=== PATIENT | male | born 1960 | race Hispanic/Latino ===

== ENCOUNTER 2019-02-02 05:58 | Outpatient (CLI) | payer BC | END 2019-02-02 05:59 | disposition home or self-care (01) | LOC: CARDIO 05:58 ==

== ENCOUNTER 2019-02-02 10:06 | Day surgery (SDC) | payer BC ==
[2019-02-02] MEDS ORDERED: Lidocaine PF 2% (5 ml) Inj (For Cardiac Arrhy) ONE (10:26)
[2019-02-02] MEDS ORDERED: Iodixanol 320 MG/ML 200 ML BOTTLE IV ONE (10:27)
[2019-02-02] MEDS ORDERED: Iodixanol 320 MG/ML 100 ML BOTTLE IV ONE (10:27)
[2019-02-02] MEDS ORDERED: Iohexol 350mgl/ml 50 ML ONE (10:27)
[2019-02-02] MEDS ORDERED: Phenylephrine 10 mg/ml Inj ONE (10:30)
[2019-02-02] MEDS ORDERED: Nitroglycerin 50mg in D5W 0 MG/0 ML BOTTLE IV ONE (10:30)
[2019-02-02 10:37] VITALS: BMI 25.8
[2019-02-02 11:09] LABS: INR 0.99; PROTHROMBIN TIME 11.2 SECONDS (9.4-12.5)
[2019-02-02] MEDS ORDERED: Midazolam 2 MG/2 ML VIAL ONE ×2 (11:11→11:15)
[2019-02-02] MEDS ORDERED: Digoxin 500 mcg/2ml (0.5 mg/2ml) Inj ONE (11:27)
[2019-02-02] MEDS ORDERED: Sodium Chloride 0.9% 1,000 ML IV SCH (12:15)
[2019-02-02 12:32] VITALS: PULSE 129
--- NOTE | 2019-02-02 20:00 | CARDCATH ---
PROCEDURE DATE: 02/02/2019 HISTORY: The patient is a 58-year-old male, who presents with several weeks of progressive exertional shortness of breath. The patient is free of cardiac history. He does suffer from hypertension. He denies smoking. No diabetes mellitus. No family history for CAD. 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 REVIEW OF SYSTEMS: Dominated by exertional shortness of breath. PHYSICAL EXAMINATION: VITAL SIGNS: Blood pressure 127/90, heart rate is in the 50s. Normal sinus rhythm. NECK: Negative JVD. The patient underwent a stress test, in which his baseline EKG showed new ST-T changes. The patient became markedly short of breath at the end of stage II. Stat echocardiogram was performed, which revealed normal LV function with dilated left atrium. Because of these ongoing symptoms and high probability for CAD, he was taken to the crime lab analyst. PROCEDURE: Left heart catheterization with coronary arteriography and left ventriculogram with IVUS. The right femoral artery was cannulated with 6-Burkinan sheath. There were no complications. I performed moderate sedation, which included the presence of an independent trained observer that assisted in monitoring the patient's level of consciousness and physiologic status. After administration of Versed and fentanyl, my intra service time was 30 minutes. The findings on catheterization revealed a right dominant circulation. The RCA revealed diffuse atherosclerosis without critical lesions. The left main artery revealed an eccentric 70% stenoses at the ostial left main. The LAD revealed diffuse atherosclerosis without critical lesions. Diagonal vessels revealed diffuse atherosclerosis. The circumflex and obtuse marginal branch revealed diffuse atherosclerosis. Supra-aortic valvular injection revealed no aortic insufficiency. Left ventriculogram was performed in the KOVACS projection. In KOVACS projection, the left ventricle is mildly dilated but with normal LV systolic function with an EF of 60%. The patient was started on intravenous Angiomax on the fluoroscopic guide, the guider was placed in the ostium of the left main artery. IVUS was performed of the ostial left main. A 50% stenosis was found on IVUS. The left main artery revealed diffuse atherosclerosis throughout its course. Angio-Seal was used to close the femoral artery site. The patient tolerated the procedure well. In summary, the procedure revealed borderline critical left main stenosis varying from 50-70% with an eccentric lesion. The rest of his coronary tree revealed diffuse atherosclerosis without critical lesions. The LV function and systolic function was within normal limits. Given these findings, we will refer the patient to [place] where they can evaluate whether the ostial left main stenosis can and should be treated with percutaneous stenting as opposed to coronary bypass surgery. ADDENDUM: The patient prior to the procedure went into atrial fibrillation. He was given digoxin as well as Cardizem in the crime lab analyst. After the procedure, the patient converted to normal sinus rhythm. When he arrived in the telemetry floor, the patient went back into atrial fibrillation with a rate of 143. The patient was started on Eliquis and sotalol. Given these findings, if the patient remains stable in the morning, we will send him home on sotalol and Eliquis. He has an appointment to see Dr. Moreno in [place] on Wednesday. Silvio Duncan MD
--- NOTE | 2019-02-02 20:49 | HP ---
HISTORY OF PRESENT ILLNESS: The patient is a 58-year-old man with a past medical history of hypertension who presented for electively scheduled stress test for evaluation of angina. Due to concerning EKG changes he was taken to the cardiac catheterization lab where he was found to have diffuse coronary disease. During the procedure he developed atrial fibrillation but was medically converted to normal sinus rhythm. Shortly thereafter he redeveloped atrial fibrillation and was subsequently admitted to the telemetry fitch for continued postcatheterization care and management of new onset Afib. PAST MEDICAL HISTORY: As per HPI, also GERD. PAST SURGICAL HISTORY: Bilateral knee arthroscopy and C-spine surgery. ALLERGIES: NKDA. MEDICATIONS: Lisinopril 10 mg p.o. daily and Nexium 40 mg p.o. daily. FAMILY HISTORY: Noncontributory. SOCIAL HISTORY: The patient denies any history of toxic habits. REVIEW OF SYSTEMS: A 12-point review of systems is negative except as per HPI. PHYSICAL EXAMINATION: VITAL SIGNS: Temperature 98, pulse 55, blood pressure 140/61, respiratory rate 18, and oxygen saturation 99% on room air. GENERAL: No apparent distress. HEENT: PERRL. EOMI. No scleral icterus. No conjunctival pallor. NECK: No JVD. No bruits. LUNGS: Clear to auscultation. CARDIOVASCULAR: Tachycardic, irregularly irregular. Normal S1 and S2. No murmurs. ABDOMEN: Normoactive bowel sounds, soft, nontender and nondistended. EXTREMITIES: No edema. Cardiac catheterization site appears intact with no evidence of hematoma or femoral bruit. NEUROLOGIC: Awake, alert, and oriented x 3. No focal motor deficits. LABORATORY DATA: No new labs. ASSESSMENT: The patient is a 58-year-old man with a past medical history of hypertension who presented for electively scheduled stress testing for evaluation of angina and was was subsequently taken to the cardiac catheterization lab and whose hospital course was complicated by development of new onset atrial fibrillation. PLAN: 1. CAD. Input from Dr. Duncan noted and cardiac cath demonstrated diffuse coronary disease. Arrangements will be made for followup at [place] for continued care. Continue with post-cardiac catheterization care as per Dr. Duncan. 2. AFib, new onset. Continue Sotalol 80 mg p.o. b.i.d. and Eliquis 5 mg p.o. b.i.d. 3. Hypertension. We will continue to monitor hemodynamics and adjust antihypertensives as needed. 4. GERD. Resume Protonix 40 mg p.o. daily. 5. Prophylaxis. GI prophylaxis not indicated as the patient remains on Protonix. DVT prophylaxis not indicated as the patient remains on Eliquis. CODE STATUS: Full code. Mark Bazan MD MTDD
--- NOTE | 2019-02-02 22:24 | CARD ---
APPROVED REPORT Date of service: 02/02/2019 EKG Measurement Heart [id number] <Conclusion> Atrial fibrillation with rapid ventricular response Nonspecific ST and T wave abnormality Abnormal ECG
[2019-02-03 05:51] VITALS: RESP 18; TEMP 98.6; O2SAT 99
[2019-02-03] MEDS ORDERED: Pantoprazole 40 mg EC Tab PO SCH (06:00)
[2019-02-03 09:36] VITALS: BP 131/78
[2019-02-03 13:42] VITALS: PULSE 70
--- NOTE | 2019-02-03 16:43 | PN ---
DATE: 02/03/[address] Silvio Duncan. SUBJECTIVE: The patient denies chest pain. No groin bleeding. Rhythm converted to sinus. PHYSICAL EXAMINATION: VITAL SIGNS: Blood pressure 131/78, heart rate 68, temperature 98.6, respirations 18. HEENT: Normocephalic. CHEST: Clear. HEART: S1 and S2. Regular. ABDOMEN: Soft. EXTREMITIES: No edema. No hematoma. LABORATORY DATA: I reviewed the pre-procedure labs from the patient's primary physician's office which was faxed to me on the floor and they were within normal limits. In hospital INR, PT and PTT are within normal limits. I did review the cardiac catheterization which revealed 50% ostial left main disease which was confirmed by an IVUS study. ASSESSMENT: 1. 50% ostial left main disease. 2. Paroxysmal atrial fibrillation. PLAN: The patient's original plan with Dr. Duncan was to be discharged on Betapace at 80 mg p.o. twice a day, Eliquis 5 mg twice a day. The patient has an appointment with Dr. Moreno on Wednesday to undergo PCI to the ostial left main, however, it appears that the choice of Dr. Moreno will have to be changed to another kennel operator, because of the insurance issues. The patient will contact Dr. Silvio Duncan on Wednesday to select another option. Anson Fletcher MD
--- NOTE | 2019-02-04 00:34 | DS ---
HOSPITAL COURSE: The patient is a 58-year-old white male in room 273, bed 1. The patient went into atrial fibrillation for which she was cathed yesterday. Cath report shows . PHYSICAL EXAMINATION: VITAL SIGNS: Temperature of 98.6, pulse rate is 67, blood pressure is 143/89, respiratory rate of 18, and O2 saturation 99% on room air. HEENT: PERRLA. EOMI. There is no icterus present. NECK: Supple with full range of motion. No adenopathy or bruits are appreciated. LUNGS: Clear bilaterally. HEART: Irregularly irregular rate and rhythm. ABDOMEN: Soft and nontender. Bowel sounds are normoactive. NEUROLOGIC: There are no focal motor deficits. LABORATORY DATA: Report shows a normal PT, PTT, and INR. DISCHARGE MEDICATIONS: The patient will be discharged on Betapace 80 mg twice a day as well as Eliquis 5 mg twice a day. DISCHARGE INSTRUCTIONS: He has been scheduled for Wednesday, to go to [facility] for a cardioversion. DISCHARGE DIAGNOSES: Atrial fibrillation. Donis Bazan MD
== END 2019-02-03 14:54 | disposition home or self-care (01) ==
LOC: CATH 10:06 → 2RSO 12:11 → CATH 02-03 14:54
PROVIDERS: ATTEND Internal Medicine Cardiovascular Disease
DX: I25.10 Atherosclerotic heart disease of native coronary artery without angina pectoris (principal); I48.91 Unspecified atrial fibrillation; I10 Essential (primary) hypertension; K21.9 Gastro-esophageal reflux disease without esophagitis; Z79.01 Long term (current) use of anticoagulants
CPT/HCPCS: 36415; 85610; 85730; 86850; 86900; 92978; 93005; 93458; 99152; 99153; C1753; C1760; C1769 ×2; C1887; C2629; J0583; J1160; J1644; J2250; J3010; J7030; J7040; Q9966